=== PATIENT | male | born 1945 | race Caucasian/White ===

== ENCOUNTER → 2017-06-21 | Outpatient (CLI) | payer MEDICARE | END | disposition home or self-care (01) | LOC: PCVCCLINIC 11:37 | PROVIDERS: ATTEND Internal Medicine Cardiovascular Disease | DX: I25.10 Atherosclerotic heart disease of native coronary artery without angina pectoris (principal); I10 Essential (primary) hypertension; E78.00 Pure hypercholesterolemia, unspecified; E78.01 Familial hypercholesterolemia; E11.9 Type 2 diabetes mellitus without complications; Z79.82 Long term (current) use of aspirin; Z88.2 Allergy status to sulfonamides; Z88.8 Allergy status to other drugs, medicaments and biological substances | CPT/HCPCS: 80061; 93005; G0463 ==

== ENCOUNTER → 2017-12-31 | Outpatient (CLI) | payer MEDICARE | END | disposition home or self-care (01) | LOC: PCVCIMAG 11:21 | DX: I25.10 Atherosclerotic heart disease of native coronary artery without angina pectoris (principal); I10 Essential (primary) hypertension; E78.5 Hyperlipidemia, unspecified; Z95.5 Presence of coronary angioplasty implant and graft | CPT/HCPCS: 93325; 93351 ==

== ENCOUNTER → 2018-09-02 | Outpatient (CLI) | payer MEDICARE | END | disposition home or self-care (01) | LOC: PCVCCLINIC 11:09 | PROVIDERS: ATTEND Internal Medicine Cardiovascular Disease | DX: I25.10 Atherosclerotic heart disease of native coronary artery without angina pectoris (principal); I10 Essential (primary) hypertension; E78.00 Pure hypercholesterolemia, unspecified; F10.10 Alcohol abuse, uncomplicated; Z88.2 Allergy status to sulfonamides; Z88.8 Allergy status to other drugs, medicaments and biological substances; Z79.899 Other long term (current) drug therapy; Z79.82 Long term (current) use of aspirin | CPT/HCPCS: 80061; 93005; G0463 ==

== ENCOUNTER → 2019-08-11 | Outpatient (CLI) | payer MEDICARE ==
--- NOTE | 2019-08-11 12:23 | PCVCIMAG ---
APPROVED REPORT Study performed: 08/11/2019 10:47:18 Exam: Stress Echocardiogram Indication: CAD s/p PCI, htn, hlp Patient Location: Echo lab Stress Nurse: Joanne Vang RN Status: routine Ht: 6 ft 0 in HR: 104 bpm BP: 128/80 mmHg Rhythm: Tachycardia Procedure The patient underwent an Exercise Stress Test using the Kiet Protocol. Blood pressure, heart rate, and EKG were monitored. An Echocardiogram was performed by personnel and payroll technician in four stages in quad fashion. At peak stress, four selected images were obtained and placed side by side with resting images for comparison. Stress Test Details Stress Test: Exercise stress testing was performed using a Kiet protocol. HR Resting HR: 104 bpmMax Heart Rate (APMHR): 148 bpm Max HR Achieved: 151 bpmTarget HR (85% APMHR): 125 bpm % of APMHR: 102 Recovery HR: 127 bpm HR response to stress: Normal HR response to stress BP Resting BP: 128/80 mmHg Max BP: 156/84 mmHg Recovery BP: 138/78 mmHg BP response to stress: Normal blood pressure response to stress. ECG Resting ECG: Sinus Tachycardia Stress ECG: Sinus Rhythm ST Change: Normal Arrhythmia: None Recovery ECG: Sinus Tachycardia Recovery ST Change: Normal Recovery Arrhythmia: None Clinical Reason for Termination: Maximal effort Stress Symptoms: Dyspnea Exercise duration: 8 min sec Highest Stage Achieved: Stage 3: 3.4 mph at 14% grade. Exercise capacity: 10.4 METs Overall Exercise Capacity for Age: Normal Scale: Active Angina Score: None Pre-Stress Echo The resting Echocardiogram showed normal left ventricular contractility with an estimated Ejection Fraction of about 50-55%. The resting echocardiogram demonstrated normal wall motion in all wall segments. Post-Stress Echo The stress Echocardiogram showed normal left ventricular contractility with an estimated Ejection Fraction of about 60-65%. Compared to rest, there were no stress-induced wall motion abnormalities. Clinical No clinical or ECG evidence for ischemia. Conclusion Clinical Response: Non-ischemic Exercise Capacity: Below Average Stress ECG Response: Non-ischemic Stress Echo Images: Non-ischemic The left ventricle is normal in size and wall thickness in both the rest and stress images. Minimal aortic stenosis with MADINA of 2.1 cm2 (mean gradient 12 mmHg and peak gradient 23 mmHg), no aortic regurgitation. Mild tricuspid regurgitation with PAP of 47 mmHg and mildly dilated right ventricule and right atrium. Normal mitral and pulmonic valves. Other Information Study Quality: Adequate <Conclusion> The left ventricle is normal in size and wall thickness in both the rest and stress images. Minimal aortic stenosis with MADINA of 2.1 cm2 (mean gradient 12 mmHg and peak gradient 23 mmHg), no aortic regurgitation. Mild tricuspid regurgitation with PAP of 47 mmHg and mildly dilated right ventricule and right atrium. Normal mitral and pulmonic valves.
== END | disposition home or self-care (01) ==
LOC: PCVCIMAG 10:32
PROVIDERS: ATTEND Internal Medicine Cardiovascular Disease
DX: I08.2 Rheumatic disorders of both aortic and tricuspid valves (principal); E78.00 Pure hypercholesterolemia, unspecified; I25.10 Atherosclerotic heart disease of native coronary artery without angina pectoris; I10 Essential (primary) hypertension; Z88.1 Allergy status to other antibiotic agents
CPT/HCPCS: 93325; 93351